=== PATIENT | female | born 1990 | race African-American/Black ===

== ENCOUNTER 2021-08-09 09:20 | Emergency (ER) | payer MEDICAID ==
[~2021-08-09] VITALS: Ht 172.7 cm; Wt 100.0 kg
[~2021-08-09 09:20] MED LIST: NOCURR
[2021-08-09 09:29] VITALS: BP 151/78
[2021-08-09] MEDS ORDERED: AMOX TR/POT CLAV 875 MG/125 MG TABLET PO ONE (11:30)
[2021-08-09] MEDS ORDERED: ACETAMINOPHEN 500 MG TABLET PO ONE (11:30)
== END 2021-08-09 13:05 | disposition home or self-care (01) ==
LOC: EMS 09:20
DX: H66.91 Otitis media, unspecified, right ear (principal); M79.671 Pain in right foot; F17.290 Nicotine dependence, other tobacco product, uncomplicated
CPT/HCPCS: 99283